=== PATIENT | female | born 1965 | race Hispanic/Latino ===

== ENCOUNTER 2017-11-07 20:00 | Observation (INO) | payer BC, OTHER ==
[2017-11-07 22:09] LABS: Urine Blood NEGATIVE (NEG); Urine Glucose NEGATIVE (NEG); Urine Protein NEGATIVE (NEG)
[2017-11-07 22:17] LABS: Absolute Lymphocytes (CBC) 2.5 K/uL (0.7-4.9); Absolute Neutrophil 6.1 K/uL (1.8-8.0); Basophils % 0.6 % (0-1.3); Eosinophils % 2.1 % (0-4.4); Hematocrit 30.9 % (36.0-45.0); Lymphocytes % 25.2 % (15.3-44.8); MCH 20.4 pg (27.0-35.0); MCV 65.6 fL (80-100); MPV 9.9 fL (7.6-11.3); Monocytes % 10.6 % (3.3-12.3); RBC Red Blood Cell Count 4.71 M/uL (3.86-4.86)
[2017-11-07 22:20] LABS: Protime INR 1.11
[2017-11-07 22:32] LABS: ALT/SGPT 34 U/L (12-78); AST/SGOT 27 U/L (15-37); Albumin 3.5 g/dL (3.4-5.0); Alkaline Phosphatase 68 U/L (45-117); BUN Blood Urea Nitrogen 16 mg/dL (7-18); Bicarbonate 25 mmol/L (21-32); Bilirubin Direct < 0.1 mg/dL (0-0.2); Bilirubin Total 0.3 mg/dL (0.2-1.0); CKMB Creatine Kinase MB 1.2 ng/mL (0.3-3.6); Creatine Phosphokinase 91 U/L (26-192); Glucose Level 83 mg/dL (74-106); Magnesium 2.3 mg/dL (1.8-2.4); NT PRO-BNP 40 pg/mL (<125); Potassium 3.5 mmol/L (3.5-5.1); Protein, Total 7.6 g/dL (6.4-8.2); Sodium Level 139 mmol/L (136-145)
[2017-11-07] MEDS ORDERED: HYDROCODONE/APAP 5/325 MG TAB ONE (22:53)
[2017-11-07] MEDS ORDERED: ASPIRIN 81 MG CHEWABLE TABLET ONE (23:01)
[2017-11-07] MEDS ORDERED: ACETAMINOPHEN 500 MG TAB PO PRN (23:13)
[2017-11-07] MEDS ORDERED: MORPHINE 4 MG/ML SYR IV PRN (23:13)
[2017-11-07] MEDS ORDERED: ALPRAZOLAM 0.25 MG TABLET PO PRN (23:13)
--- NOTE | 2017-11-07 23:34 | EDPHYS ---
Physician Documentation [facility] Name: Laura Archer Age: 52 yrs Sex: Female : 1965 Arrival Date: 11/07/2017 Time: 20:01 Bed 19 Private MD: ED Physician Yannick Lara HPI: 11/08 00:01 This 52 yrs old Female presents to ER via Ambulatory with complaints of Chest tw4 Pain > 30 y/o, Numbness Of Arm, Numbness Of Face. 00:01 The patient or guardian reports chest pain that is located primarily in the anterior tw4 chest wall. Onset: today. The pain does not radiate. Associated signs and symptoms: The patient has no apparent associated signs or symptoms. The chest pain is described as burning, sharp. Duration: The patient or guardian reports multiple episodes, that wax and wane, with no pattern. Modifying factors: The symptoms are alleviated by nothing. the symptoms are aggravated by nothing. Severity of pain: At its worst the pain was moderate in the emergency department the pain has resolved. 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 - Social history:: Smoking status: unknown. - Ebola Screening: : Patient negative for fever greater than or equal to 101.5 degrees Fahrenheit, and additional compatible Ebola Virus Disease symptoms. ROS: 11/08 00:01 Constitutional: Negative for fever, chills, and weight loss, Respiratory: Negative for tw4 shortness of breath, cough, wheezing, and pleuritic chest pain, Abdomen/GI: Negative for abdominal pain, nausea, vomiting, diarrhea, and constipation, Back: Negative for injury and pain. MS/Extremity: Negative for injury and deformity, Skin: Negative for injury, rash, and discoloration, Neuro: Negative for headache, weakness, numbness, tingling, and seizure. Cardiovascular: Positive for chest pain, Negative for edema, orthopnea, palpitations, paroxysmal nocturnal dyspnea. Exam: 00:01 Constitutional: This is a well developed, well nourished patient who is awake, alert, tw4 and in no acute distress. Chest/axilla: Normal chest wall appearance and motion. Nontender with no deformity. No lesions are appreciated. Cardiovascular: Regular rate and rhythm with a normal S1 and S2. No gallops, murmurs, or rubs. Normal PMI, no JVD. No pulse deficits. Respiratory: Lungs have equal breath sounds bilaterally, clear to auscultation and percussion. No rales, rhonchi or wheezes noted. No increased work of breathing, no retractions or nasal flaring. Abdomen/GI: Soft, non-tender, with normal bowel sounds. No distension or tympany. No guarding or rebound. No evidence of tenderness throughout. Back: No spinal tenderness. No costovertebral tenderness. Full range of motion. MS/ Extremity: Pulses equal, no cyanosis. Neurovascular intact. Full, normal range of motion. Neuro: Awake and alert, GCS 15, oriented to person, place, time, and situation. Cranial nerves II-XII grossly intact. Motor strength 5/5 in all extremities. Sensory grossly intact. Cerebellar exam normal. Normal gait. 00:01 ECG was reviewed by the Attending Physician. Vital Signs: 11/07 20:25 BP 149 / 87; Pulse 110; Resp 17 S; Temp 98.7(O); Pulse Ox 97% on R/A; Weight 85.73 kg jd3 (R); Height 5 ft. 0 in. (152.40 cm) (R); Pain 1/10; 21:25 BP 136 / 61; Pulse 61; Pulse Ox 95% on R/A; bs1 22:25 BP 120 / 68; Pulse 104; Resp 17; Pulse Ox 99% on R/A; bs1 23:25 BP 135 / 80; Pulse 74; Resp 16 S; Pulse Ox 100% on R/A; bs1 11/08 00:15 BP 122 / 72; Pulse 63; Resp 16; Temp 98(O); Pulse Ox 99% on R/A; Pain 4/10; bs1 11/07 20:25 Body Mass Index 36.91 (85.73 kg, 152.40 cm) jd3 NIH Stroke Scale Scores: 11/07 20:23 NIHSS Score: 0 bs1 MDM: 20:17 Patient medically screened. tw11/08 00:01 Differential diagnosis: abnormal EKG. The patient was given aspirin in the Emergency 4 Department. Data reviewed: vital signs, nurses notes. Counseling: I had a detailed discussion with the patient and/or guardian regarding: the historical points, exam findings, and any diagnostic results supporting the discharge/admit diagnosis. Physician consultation: Yohannes Ray MD. Admission orders: after a detailed discussion of the patient's condition and case, the admit orders are written by me. Special discussion:. 00:05 Data interpreted: alarm security or surveillance monitor: Pulse oximetry: Interpretation: normal. tw11/07 21:41 Order name: Basic Metabolic Panel; Complete Time: 22:41 tw 11/07 22:41 Interpretation: Within normal limits. tw11/07 21:41 Order name: CBC with Diff tw11/07 22:42 Interpretation: Normal except: HCT 30.9; HGB 9.6; MCV 65.6; MCH 20.4; MCHC 31.2; RDW tw4 21.0. 11/07 21:41 Order name: Ckmb; Complete Time: 22:41 tw4 11/07 22:41 Interpretation: Within normal limits: CKMB 1.2. tw11/07 21:41 Order name: CPK; Complete Time: 22:41 tw 11/07 22:41 Interpretation: Within normal limits: CPK 91. 11/07 21:41 Order name: LFT's; Complete Time: 22:41 tw 11/07 22:41 Interpretation: GLOB 4.1; A/G 0.9. 11/07 21:41 Order name: Magnesium; Complete Time: 22:41 tw4 11/07 22:41 Interpretation: Within normal limits: MG 2.3. tw11/07 21:41 Order name: NT PRO-BNP; Complete Time: 22:41 tw 11/07 22:41 Interpretation: Within normal limits: NT PRO-BNP 40. 11/07 21:41 Order name: PT-INR; Complete Time: 22:41 tw 11/07 21:41 Order name: Ptt, Activated; Complete Time: 22:41 tw4 11/07 22:41 Interpretation: Within normal limits: PTT 26.5. tw4 11/07 21:41 Order name: Troponin (emerg Dept Use Only); Complete Time: 22:41 tw4 11/07 22:42 Interpretation: Within normal limits: TROPED < 0.02. tw4 11/07 22:02 Order name: Urine Dipstick--Ancillary (enter results); Complete Time: 22:18 vt 11/07 22:23 Order name: CBC Smear Scan [facility] 11/07 23:17 Order name: Lipid Profile [facility] 11/07 23:17 Order name: Lipid Profile [facility] 11/07 21:41 Order name: XRAY Chest (1 view) tw 11/07 21:41 Order name: EKG; Complete Time: 21:42 tw4 11/07 21:41 Order name: Cardiac monitoring; Complete Time: 22:08 tw 11/07 21:41 Order name: EKG - Nurse/Tech; Complete Time: 22:08 tw 11/07 21:41 Order name: IV Saline Lock; Complete Time: 22:08 tw4 11/07 21:41 Order name: Labs collected and sent; Complete Time: 22:08 tw4 11/07 21:41 Order name: O2 Per Protocol; Complete Time: 22:08 tw4 11/07 23:17 Order name: Heart Healthy [facility] 11/07 23:17 Order name: Echo with Doppler [facility] 11/07 23:17 Order name: EKG Electrocardiogram [facility] 11/07 23:17 Order name: EKG Electrocardiogram [facility] 11/07 23:17 Order name: Troponin I [facility] 11/07 23:17 Order name: Troponin I [facility] 11/07 23:17 Order name: Troponin I [facility] 11/07 21:41 Order name: O2 Sat Monitoring; Complete Time: 22:08 tw4 11/07 21:41 Order name: Urine Dipstick-Ancillary (obtain specimen); Complete Time: 22:08 tw4 EC:01 Rhythm is regular. QRS [place] is Normal. ID interval is normal. QRS interval is normal. tw4 QT interval is normal. No Q waves. T waves are Normal. No ST changes noted. Clinical impression: NSR w/ Non-specific ST/T Changes. Interpreted by me. Reviewed by me. Administered Medications: 11/07 22:56 Not Given (incorrect patient): [place] 5 mg-325 mg 1 tabs PO once bs1 23:00 Drug: Aspirin Chewable Tablet 81 mg Route: PO; bs1 23:34 Follow up: Response: No adverse reaction bs1 Disposition: 11/07/17 23:33 Hospitalization ordered by Yohannes Ray for Observation. Preliminary diagnosis is Chest pain, unspecified. - Bed requested for Telemetry/MedSurg (observation). - Status is Observation. bs1 - Condition is Stable. - Problem is new. - Symptoms have improved. UTI on Admission? No NIH Stroke Scale - NIH Stroke Score Date: 11/07/2017 Time: 20:23 Total Score = 0 1a. Level of Consciousness (LOC) - 0(Alert) 1b. Level of Consciousness (LOC) (Year \T\ Age) - 0(Both) 1c. LOC Commands (Open \T\ Closes Eyes/Signal Operator Linguist) - 0(Both) 2. Best Gaze (Lateral Gaze Paresis) - 0(Normal) 3. Visual Field Loss - 0(No visual loss) 4. Facial Palsy - 0(Normal) 5a. Left Arm: Motor (10-second hold) - 0(No drift) 5b. Right Arm: Motor (10-second hold) - 0(No drift) 6a. Left Leg: Motor (5-second hold - always test supine) - 0(No drift) 6b. Right Leg: Motor (5-second hold - always test supine) - 0(No drift) 7. Limb Ataxia (finger/nose \T\ heel/valdivia - test with eyes open) - 0(Absent) 8. Sensory Loss (pinprick arms/legs/face) - 0(Normal) 9. Best Language: Aphasia (description/naming/reading) - 0(No aphasia) 10. Dysarthria (speech clarity - read or repeat words) - 0(Normal) 11. Extinction and Inattention (visual/tactile/auditory/spatial/personal) - 0(No abnormality) Initials: bs1 Signatures: Dispatcher [employer] Aurelia Weiss RN RN cg Thompson, Moriah mt Davies, Jonathon, RN RN jDawna Gutierrez RN RN bs1 Yannick Lara MD MD tw4 Corrections: (The following items were deleted from the chart) 23:43 23:33 Hospitalization Ordered by Yohannes Ray MD for Observation. Preliminary mt diagnosis is Chest pain, unspecified. Bed requested for Telemetry/MedSurg (observation). Status is Observation. Condition is Stable. Problem is new. Symptoms have improved. UTI on Admission? No. tw4 23:49 23:43 11/07/2017 23:33 Hospitalization Ordered by Yohannes Ray MD for cg Observation. Preliminary diagnosis is Chest pain, unspecified. Bed requested for Telemetry/MedSurg (observation). Status is Observation. Condition is Stable. Problem is new. Symptoms have improved. UTI on Admission? No. mt 11/08 00:27 07 23:49 11/07/2017 23:33 Hospitalization Ordered by Yohannes Ray MD for bs1 Observation. Preliminary diagnosis is Chest pain, unspecified. Bed requested for Telemetry/MedSurg (observation). Status is Observation. Condition is Stable. Problem is new. Symptoms have improved. UTI on Admission? No.
--- NOTE | 2017-11-07 23:34 | ER ---
Nurse's Notes [facility] Name: Laura Archer Age: 52 yrs Sex: Female : 1965 Arrival Date: 11/07/2017 Time: 20:01 Bed 19 Private MD: Diagnosis: Chest pain, unspecified Presentation: 11/07 20:16 Presenting complaint: Patient states: "I have been having some chest pressure and pain jd3 that radiates down my left arm, making it feel numb and tingly. I thought it was heart burn, but now that my arm is feeling weird, I wanted to make sure everything is ok.". Transition of care: patient was not received from another setting of care. Onset of symptoms was November 07, 2017. Risk Assessment: Do you want to hurt yourself or someone else? Patient reports no desire to harm self or others. Initial Sepsis Screen: Does the patient meet any 2 criteria? HR > 90 bpm. Does the patient have a suspected source of infection? No. Patient's initial sepsis screen is negative. Care prior to arrival: None. 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 - Social history:: Smoking status: unknown. - Ebola Screening: : Patient negative for fever greater than or equal to 101.5 degrees Fahrenheit, and additional compatible Ebola Virus Disease symptoms. Screenin:23 Abuse screen: Denies threats or abuse. Denies injuries from another. Nutritional bs1 screening: No deficits noted. Tuberculosis screening: No symptoms or risk factors identified. Fall Risk None identified. Assessment: 20:20 General: Appears in no apparent distress. uncomfortable, Behavior is calm, cooperative, bs1 appropriate for age. Pain: Complains of pain in left side of chest Pain radiates to left arm/neck/face Pain began sometime this morning. Neuro: Level of Consciousness is awake, alert, obeys commands, Oriented to person, place, time, situation, Appropriate for age Senior Industrial Engineer are equal bilaterally Moves all extremities. Full function Gait is steady, Speech is normal, Facial symmetry appears normal, Pupils are PERRLA, Intact Reports numbness in left arm/face- none reported at this time Denies blurred vision difficulty swallowing, headache. Cardiovascular: Reports chest pain, Denies nausea, palpitations, shortness of breath, Heart tones S1 S2 present Capillary refill < 3 seconds Patient's skin is warm and dry. Respiratory: Airway is patent Trachea midline Respiratory effort is even, unlabored, Respiratory pattern is regular, symmetrical, Breath sounds are clear bilaterally. GI: No signs and/or symptoms were reported involving the gastrointestinal system. : No signs and/or symptoms were reported regarding the genitourinary system. EENT: No signs and/or symptoms were reported regarding the EENT system. Derm: Skin is intact, Skin is pink, warm \\T\\ dry. normal. Musculoskeletal: Circulation, motion, and sensation intact. Capillary refill < 3 seconds, Range of motion: intact in all extremities. 21:45 Reassessment: Patient appears in no apparent distress at this time. No changes from bs1 previously documented assessment. Patient and/or family updated on plan of care and expected duration. Pain level reassessed. Patient is alert, oriented x 3, equal unlabored respirations, skin warm/dry/pink. 23:00 Reassessment: Dr Lara gave verbal order to give aspirin 81mg po now. bs1 11/08 00:15 Reassessment: Patient appears in no apparent distress at this time. No changes from bs1 previously documented assessment. Patient and/or family updated on plan of care and expected duration. Pain level reassessed. Patient is alert, oriented x 3, equal unlabored respirations, skin warm/dry/pink. Vital Signs: 11/07 20:25 BP 149 / 87; Pulse 110; Resp 17 S; Temp 98.7(O); Pulse Ox 97% on R/A; Weight 85.73 kg jd3 (R); Height 5 ft. 0 in. (152.40 cm) (R); Pain 1/10; 21:25 BP 136 / 61; Pulse 61; Pulse Ox 95% on R/A; bs1 22:25 BP 120 / 68; Pulse 104; Resp 17; Pulse Ox 99% on R/A; bs1 23:25 BP 135 / 80; Pulse 74; Resp 16 S; Pulse Ox 100% on R/A; bs1 11/08 00:15 BP 122 / 72; Pulse 63; Resp 16; Temp 98(O); Pulse Ox 99% on R/A; Pain 4/10; bs1 07 20:25 Body Mass Index 36.91 (85.73 kg, 152.40 cm) jd3 NIH Stroke Scale Scores: 11/07 20:23 NIHSS Score: 0 bs1 ED Course: 20:01 Patient arrived in ED. am2 20:08 Dawna Mcbride, RN is Primary Nurse. bs1 20:17 Yannick Lara MD is Attending Physician. tw4 20:18 Triage completed. jd3 20:24 Patient has correct armband on for positive identification. Placed in gown. Bed in low bs1 position. Call light in reach. Side rails up X 1. pvc monitor on. Pulse ox on. NIBP on. 20:25 Arm band placed on right wrist. EKG completed in triage. Results shown to MD. bs1 20:25 Patient maintains SpO2 saturation greater than 95% on room air. bs1 20:34 Inserted saline lock: 22 gauge in left antecubital area, using aseptic technique. Blood ks6 collected. 21:53 X-ray completed. Portable x-ray completed in exam room. Patient tolerated procedure bb2 well. 21:54 XRAY Chest (1 view) In Process Unspecified. EDMS 23:33 Yohannes Ray MD is Hospitalizing Provider. tw4 07 00:23 No provider procedures requiring assistance completed. Patient admitted, IV remains in bs1 place. intact. Administered Medications: 11/07 22:56 Not Given (incorrect patient): Jansen 5 mg-325 mg 1 tabs PO once bs1 23:00 Drug: Aspirin Chewable Tablet 81 mg Route: PO; bs1 23:34 Follow up: Response: No adverse reaction bs1 Outcome: 23:33 Decision to Hospitalize by Provider. tw4 11/08 00:23 Admitted to Tele accompanied by tech, via wheelchair, room 407, with chart, Report bs1 called to LUCIO Benavides Condition: stable Instructed on the need for admit, Demonstrated understanding of instructions. 00:27 Patient left the ED. bs1 NIH Stroke Scale - NIH Stroke Score Date: 11/07/2017 Time: 20:23 Total Score = 0 1a. Level of Consciousness (LOC) - 0(Alert) 1b. Level of Consciousness (LOC) (Year \\T\\ Age) - 0(Both) 1c. LOC Commands (Open \\T\\ Closes Eyes/Electric Installer) - 0(Both) 2. Best Gaze (Lateral Gaze Paresis) - 0(Normal) 3. Visual Field Loss - 0(No visual loss) 4. Facial Palsy - 0(Normal) 5a. Left Arm: Motor (10-second hold) - 0(No drift) 5b. Right Arm: Motor (10-second hold) - 0(No drift) 6a. Left Leg: Motor (5-second hold - always test supine) - 0(No drift) 6b. Right Leg: Motor (5-second hold - always test supine) - 0(No drift) 7. Limb Ataxia (finger/nose \\T\\ heel/valdivia - test with eyes open) - 0(Absent) 8. Sensory Loss (pinprick arms/legs/face) - 0(Normal) 9. Best Language: Aphasia (description/naming/reading) - 0(No aphasia) 10. Dysarthria (speech clarity - read or repeat words) - 0(Normal) 11. Extinction and Inattention (visual/tactile/auditory/spatial/personal) - 0(No abnormality) Initials: bs1 Signatures: Dispatcher [employer] Dorita Hernandez am2 Pepito Alberts RN RN jDawna Griffin bb2 Dawna Mcbride RN RN bs1 Yannick Lara MD MD tw4 Etienne Jaeger ks6 Corrections: (The following items were deleted from the chart) 11/07 23:02 21:30 Reassessment: Dr Lara gave verbal order to give norco 5-325 x1 po if bs1 patient requested something for pain bs1
[2017-11-08 00:20] LABS: Anisocytosis 2+; Blood Morphology Comment NOTED (NOT SEEN); Platelet Estimate ADEQ; Urine White Blood Cell Casts OK
[2017-11-08 01:05] VITALS: BMI 37.8
--- NOTE | 2017-11-08 08:35 | RAD REPORT ---
EXAM DESCRIPTION: Dot Single View11/07/2017 9:54 pm CLINICAL HISTORY: Chest pain COMPARISON: none FINDINGS: The lungs appear clear of acute infiltrate. The heart is normal size IMPRESSION: No acute abnormalities displayed
--- NOTE | 2017-11-08 08:38 | P.HP ---
Certification for Inpatient Patient admitted to: Observation With expected LOS: <2 Midnights Patient will require the following post-hospital care: None Practitioner: I am a practitioner with admitting privileges, knowledge of patient current condition, hospital course, and medical plan of care. Services: Services provided to patient in accordance with Admission requirements found in Title 42 Section 412.3 of the Code of Federal Regulations Patient History Date of Service: 11/07/17 Reason for admission: Chest pain rule out acute coronary syndrome History of Present Illness: Patient is a 52-year-old female came into the hospital with chest pain. Pain was mainly in the sternal region. It radiated down her left arm and to her neck. Patient states she fell some tingling to her left side of her face as well. After lunch if felt little bit better and she felt like it was related to heartburn. She does have multiple risk factors including a family history as well as elevated cholesterol. Patient denies hypertension or diabetes. Clinically patient pain is improved. Plan to do a stress test and if negative then possibly discharge home later today. Allergies Penicillins Adverse Reaction (Verified 11/08/17 03:47) Itching/Hives/Rash Home Medications: Ciprofloxacin/Ciprofloxa HCl [Ciprofloxacin 500 mg ER Tablet] 500 mg PO BID 07/24 Ferrous Sulfate [Feosol] 325 mg PO DAILY 11/08/17 Levothyroxine [Synthroid] 50 mcg PO DAILY 11/08/17 Metronidazole 500 mg PO BID 11/08/17 Pantoprazole [Protonix Tab] 40 mg PO DAILY 11/08/17 - Past Medical/Surgical History Has patient received pneumonia vaccine in the past: No Diabetic: No -: Anemia -: Hypothyroidism -: GERD -: Dyslipidemia - Family History Father Medical History: Stroke, Cancer Notes: Prostate cancer Mother Medical History: Heart disease, Diabetes, Other (see notes) Notes: CHF; Dementia Sister Medical History: Diabetes - Social History Smoking Status: Never smoker Alcohol use: No CD- Drugs: No Caffeine use: Yes Place of Residence: Home Physical Examination - Vital Signs Temperature: 98.4 F Blood Pressure: 121/67 Pulse: 85 Respirations: 18 Pulse Ox (%): 97 - Studies Laboratory Data (last 24 hrs) 11/07/17 20:30: PT 13.1 H, INR 1.11, APTT 26.5 11/07/17 20:30: WBC 9.9, Hgb 9.6 L, Hct 30.9 L, Plt Count 264 11/07/17 20:30: Sodium 139, Potassium 3.5, BUN 16, Creatinine 0.60, Glucose 83, Magnesium 2.3, Total Bilirubin 0.3, AST 27, ALT 34, Alkaline Phosphatase 68 Assessment & Plan - Problems (Diagnosis) (1) Chest pain, rule out acute myocardial infarction Current Visit: Yes Status: Acute (2) Dyslipidemia Current Visit: Yes Status: Acute - Plan 1. Serial troponins and EKG 2. Cardiology consultation 3. Echocardiogram and stress test 4. Anti-platelet therapy, anti coagulation, beta-ivonne, statin, and O2 as needed 5. IV morphine for pain 6. Nitro p.r.n. Discharge Plan: Home Plan to discharge in: Greater than 2 days - Advance Directives Does patient have a Living Will: No Does patient have a Durable POA for Healthcare: No - Code Status/Comfort Care Code Status Assessed: Yes Code Status: Full Code Critical Care: No Time Spent Managing PTS Care (In Minutes): 50
[2017-11-08] MEDS ORDERED: ASPIRIN EC 81 MG TAB PO SCH (09:00)
[2017-11-08] MEDS ORDERED: ENOXAPARIN 40 MG/0.4 ML SQ SCH (09:00)
[2017-11-08] MEDS ORDERED: METOPROLOL TAR 50 MG TAB PO SCH (09:00)
[2017-11-08] MEDS ORDERED: REGADENOSON 0.4 MG/5 ML SYR IV ONE (09:35)
[2017-11-08 13:53] VITALS: BP 114/72; TEMP 99.3
--- NOTE | 2017-11-08 14:04 | RAD REPORT ---
EXAM DESCRIPTION: NM - Rest Stress Cardiac Imaging - 11/08/2017 1:42 pm CLINICAL HISTORY: CHEST PAIN Chest pain. COMPARISON: No comparisons TECHNIQUE: The patient was administered approximately 10mCi of Tc 99m Sestamibi prior to resting SPE CT imaging of the heart. The patient was then administered approximately 30 mCi of Tc 99m Sestamibi f ollowing exercise or pharmacologic stress. Multiplanar SPECT images were reviewed. FINDINGS: No stress induced ischemic defect is seen to suggest stress induced ischemia. No fixed def ect is seen to suggest hibernating myocardium or scarred myocardium. The end diastolic volume is 93 ml, the end systolic volume is 41 ml, and the ejection fraction is 55 %. IMPRESSION: No stress induced ischemia.
--- NOTE | 2017-11-08 15:20 | ECHO ---
HEIGHT: 5 ft 0 in WEIGHT: 193 lb 11.2 oz DATE OF STUDY: 11/08/[address]: Yohannes Ray MD 2-DIMENSIONAL: YES M.MODE: YES DOPPLER: YES COLOR FLOW: YES TDS: NO PORTABLE: NO DEFINITY: NO BUBBLE STUDY: NO DIAGNOSIS: CHEST PAIN CARDIAC HISTORY: CATHERIZATION: NO SURGERY: NO PROSTHETIC VALVE: NO PACEMAKER: NO MEASUREMENTS (cm) DIASTOLIC (NORMALS) SYSTOLIC (NORMALS) IVSd 1.0 (0.6-1.2) LA Diam 3.6 (1.9-4.0) LVEF 67% LVIDd 4.8 (3.5-5.7) LVIDs 3.0 (2.0-3.5) %FS 37% LVPWd 1.0 (0.6-1.2) Ao Diam 2.5 (2.0-3.7) 2 DIMENSIONAL ASSESSMENT: RIGHT ATRIUM: NORMAL LEFT ATRIUM: NORMAL RIGHT VENTRICLE: NORMAL LEFT VENTRICLE: NORMAL TRICUSPID VALVE: NORMAL MITRAL VALVE: NORMAL PULMONIC VALVE: NORMAL AORTIC VALVE: NORMAL PERICARDIAL EFFUSION: NONE AORTIC ROOT: NORMAL LEFT VENTRICULAR WALL MOTION: NORMAL DOPPLER/COLOR FLOW: MILD TRICUSPID REGURGITATION. NORMAL RIGHT VENTRICUALR SYSTOLIC PRESSURE. COMMENTS: MILD TRICUSPID REGURGITATION. NORMAL LEFT VENTRICULAR SIZE AND FUNCTION. NO WALL MOTION ABNORMALITY. TECHNOLOGIST: ANY HUNTER
--- NOTE | 2017-11-08 15:28 | TREADPHA ---
DX: CHEST PAIN Date of Study: 11/08/17 Ht: 5 0 Wt: 193 lb 11.2 oz Consulting Physician: DARRICK MEDICATIONS: TYLENOL, XANAX, ASPIRIN, LOVENOX, LOPRESSOR HISTORY: 52 YEAR OLD FEMALE WITH COMPLAINTS OF CHEST PAIN. MEDICAL HISTORY OF ANEMIA, HYPOTHYROIDISIM. PHYSICIAL EXAMINATION: RESTING B.P.: 126/85 RESTING H.R.: 90 RESTING EKG: NORMAL. PROTOCOL: LEXISCAN EXERCISE TIME: 3:30 B.P. AT PEAK STRESS: 129/85 IMPRESSION: LEXISCAN INJECTED, CARDIOLITE INJECTED PER PROTOCOL. SEE NUCLEAR MEDICINE REPORT. NO SUPRA VENTRICULAR TACHYCARDIA, NO VENTRICULAR TACHYCARDIA. NO PREMATURE VENTRICULAR COMPLEXES. DENIED CHEST PAINS.
--- NOTE | 2017-11-08 15:36 | EKG ---
Test Date: 2017-11-08 Test Time: 07:19:03 Slasher Operator: CANELO MEASUREMENT RESULTS: Intervals: Rate: 86 KS: 160 QRSD: 74 QT: 390 QTc: 466 [place]: P: 52 KS: 160 QRS: 16 T: 43 INTERPRETIVE STATEMENTS: Normal sinus rhythm Normal ECG Compared to ECG 11/07/2017 20:15:04 Left ventricular hypertrophy no longer present Electronically Signed On 11-08-17 15:34:00 CDT by Miguel Barcenas
--- NOTE | 2017-11-08 15:36 | EKG ---
Test Date: 2017-11-07 Test Time: 20:15:04 Founding Partner: WENDY MEASUREMENT RESULTS: Intervals: Rate: 95 MN: 152 QRSD: 76 QT: 380 QTc: 477 [place]: P: 41 MN: 152 QRS: -8 T: 21 INTERPRETIVE STATEMENTS: Normal sinus rhythm Minimal voltage criteria for LVH, may be normal variant Borderline ECG No previous ECG available for comparison Electronically Signed On 11-08-17 15:34:07 CDT by Miguel Barcenas
--- NOTE | 2017-11-08 16:03 | P.SSS ---
Patient History Date of Service: 11/08/17 Primary Care Provider: None Reason for admission: Chest pain rule out acute coronary syndrome History of Present Illness: Patient is a 52-year-old female came into the hospital with chest pain. Pain was mainly in the sternal region. It radiated down her left arm and to her neck. Patient states she fell some tingling to her left side of her face as well. After lunch if felt little bit better and she felt like it was related to heartburn. She does have multiple risk factors including a family history as well as elevated cholesterol. Patient denies hypertension or diabetes. Clinically patient pain is improved. Plan to do a stress test and if negative then possibly discharge home later today. Allergies Penicillins Adverse Reaction (Verified 11/08/17 03:47) Itching/Hives/Rash Home Medications: RX: Ciprofloxacin/Ciprofloxa HCl [Ciprofloxacin 500 mg ER Tablet] 500 mg PO BID 11/08/17 RX: Ferrous Sulfate [Ferrous Sulfate*] 325 mg PO DAILY 11/08/17 RX: Levothyroxine [Synthroid*] 50 mcg PO DAILY 11/08/17 RX: Metronidazole 500 mg PO BID 11/08/17 RX: Pantoprazole [Protonix Tab*] 40 mg PO DAILY 11/08/17 - Past Medical/Surgical History Has patient received pneumonia vaccine in the past: No Diabetic: No -: Anemia -: Hypothyroidism -: GERD -: Dyslipidemia - Family History Father -: Stroke, Cancer Notes: Prostate cancer Mother -: Heart disease, Diabetes, Other (see notes) Notes: CHF; Dementia Sister -: Diabetes - Social History Smoking Status: Never smoker Alcohol use: No CD- Drugs: No Caffeine use: Yes Place of Residence: Home Review of Systems General: As per HPI Physical Examination - Vital Signs Temperature: 99.3 F Blood Pressure: 114/72 Pulse: 72 Respirations: 18 Pulse Ox (%): 96 - Physical Exam General: Alert, In no apparent distress HEENT: Atraumatic, PERRLA, Mucous membr. moist/pink, EOMI, Sclerae nonicteric Neck: Supple, 2+ carotid pulse no bruit, No LAD, Without JVD or thyroid abnormality Respiratory: Clear to auscultation bilaterally, Normal air movement Cardiovascular: Regular rate/rhythm, Normal S1 S2 Gastrointestinal: Normal bowel sounds, No tenderness Musculoskeletal: No tenderness Integumentary: No rashes Neurological: Normal gait, Normal speech, Normal strength at 5/5 x4 extr, Normal tone, Normal affect Lymphatics: No axilla or inguinal lymphadenopathy - Studies Laboratory Data (last 24 hrs) 11/07/17 20:30: PT 13.1 H, INR 1.11, APTT 26.5 11/07/17 20:30: WBC 9.9, Hgb 9.6 L, Hct 30.9 L, Plt Count 264 11/07/17 20:30: Sodium 139, Potassium 3.5, BUN 16, Creatinine 0.60, Glucose 83, Magnesium 2.3, Total Bilirubin 0.3, AST 27, ALT 34, Alkaline Phosphatase 68 - Diagnosis (Problem(s)) (1) Chest pain, rule out acute myocardial infarction Onset Date: 11/08/17 Current Visit: Yes Status: Resolved (2) Dyslipidemia Onset Date: 11/08/17 Current Visit: Yes Status: Chronic (3) GERD (gastroesophageal reflux disease) Current Visit: Yes Status: Chronic Qualifiers: Esophagitis presence: without esophagitis Qualified Code(s): K21.9 - Gastro -esophageal reflux disease without esophagitis Treatment Summary: Admitted for Chest pain ACS ruleout. -Stress test, ECHO and troponin negative and ekg with no changes. -DC home with Protonix as symptoms consistent with Reflux - Disposition Disposition: ROUTINE DISCHARGE Condition: GOOD Patient Discharge Instructions: Please f.u with PCP in 1 to 2 week post discharge. Please f.u with Cardiology in 1 to 2 week post discharge. You were admitted to the hosptial for Chest Pain. Stress test and ECHO was WNL. You will be discharged home. You symptoms are more consistent with Reflux and you will need to continue with Protonix. Diet: Regular Activity: Ad darrion
[2017-11-08 17:05] VITALS: O2SAT 98
[2017-11-09] MEDS ORDERED: LEVOTHYROXINE SOD 0.05 MG TABLET PO SCH (06:00)
[2017-11-09] MEDS ORDERED: PANTOPRAZOLE 40MG TABLET PO SCH (06:30)
[2017-11-09] MEDS ORDERED: FERROUS SULFATE 325 MG TAB PO SCH (09:00)
== END 2017-11-08 17:30 | disposition home or self-care (01) ==
LOC: ER 20:00 → ERHOLD 23:22 → 4TH 11-08 00:14
PROVIDERS: ADMIT Hospitalist; ATTEND Family Medicine
DX: K21.9 Gastro-esophageal reflux disease without esophagitis (principal); R07.9 Chest pain, unspecified; E03.9 Hypothyroidism, unspecified; D64.9 Anemia, unspecified; Z88.0 Allergy status to penicillin; E78.5 Hyperlipidemia, unspecified; Z82.49 Family history of ischemic heart disease and other diseases of the circulatory system; I07.1 Rheumatic tricuspid insufficiency
CPT/HCPCS: 36415; 71045; 78452; 80048; 80061; 80076; 81003; 82550; 82553; 83735; 83880; 84484; 85025; 85610; 85730; 93005; 93017; 93306; 99285; A9500; G0378; J1650; J2785